=== PATIENT | male | born 1990 | race African-American/Black ===

== ENCOUNTER 2016-11-23 10:37 | Emergency (ER) | payer OTHER ==
[~2016-11-23] VITALS: Ht 170.2 cm; Wt 83.9 kg
[2016-11-23 10:50] VITALS: BP 152/75
--- NOTE | 2016-11-23 11:04 | PHYS DOC ---
Past Medical History Past Medical History: No Pertinent History Past Surgical History: No Surgical History Alcohol Use: None Drug Use: None Adult General Chief Complaint Chief Complaint: PAIN ON URINATION HPI HPI Patient is a 26 year old male presents to the emergency department with a history of dysuria for the last day. Patient denies penile drainage, denies fever, chills, nausea or vomiting. Patient states he is sexually active with one partner without protection. Review of Systems Review of Systems Constitutional: Denies fever or chills [] Eyes: Denies change in visual acuity, redness, or eye pain [] HENT: Denies nasal congestion or sore throat [] Respiratory: Denies cough or shortness of breath [] Cardiovascular: No additional information not addressed in HPI [] GI: Denies abdominal pain, nausea, vomiting, bloody stools or diarrhea [] : dysuria denies hematuria [] Musculoskeletal: Denies back pain or joint pain [] Integument: Denies rash or skin lesions [] Neurologic: Denies headache, focal weakness or sensory changes [] Endocrine: Denies polyuria or polydipsia [] Physical Exam Physical Exam Constitutional: Well developed, well nourished, no acute distress, non-toxic appearance. [] HENT: Normocephalic, atraumatic, bilateral external ears normal, oropharynx moist, no oral exudates, nose normal. [] Eyes: PERRLA, EOMI, conjunctiva normal, no discharge. [] Neck: Normal range of motion, no tenderness, supple, no stridor. [] Cardiovascular:Heart rate regular rhythm, no murmur [] Lungs & Thorax: Bilateral breath sounds clear to auscultation [] Skin: Warm, dry, no erythema, no rash. [] Back: No tenderness, no CVA tenderness. [] Extremities: No tenderness, no cyanosis, no clubbing, ROM intact, no edema. [] Neurologic: Alert and oriented X 3, normal motor function, normal sensory function, no focal deficits noted. [] Psychologic: Affect normal, judgement normal, mood normal. [] perineal exam with CARMEN Razo at bedside. Patient with no rash, no drainage noted. Current Patient Data Vital Signs Vital Signs Date Time Temp Pulse Resp B/P (MAP) Pulse Ox O2 Delivery O2 Flow Rate FiO2 11/23/16 10:50 98.0 72 18 97 Room Air 98.0 Lab Values Laboratory Tests Test 11/23/16 10:43 Urine Collection Type Unknown Urine Color Yellow Urine Clarity Clear Urine pH 6.0 Urine Specific [place] 1.020 Urine Protein Negative mg/dL (NEG-TRACE) Urine Glucose (UA) Negative mg/dL (NEG) Urine Ketones (Stick) Negative mg/dL (NEG) Urine Blood Negative (NEG) Urine Nitrite Negative (NEG) Urine Bilirubin Negative (NEG) Urine Urobilinogen Dipstick 0.2 mg/dL (0.2 mg/dL) Urine Leukocyte Esterase Negative (NEG) Urine RBC Occ /HPF (0-2) Urine WBC Occ /HPF (0-4) Urine Squamous Epithelial Cells Occ /LPF Urine Bacteria Few /HPF (0-FEW) Urine Mucus Marked /LPF EKG EKG [] Radiology/Procedures Radiology/Procedures [] Course & Med Decision Making Course & Med Decision Making Pertinent Labs and Imaging studies reviewed. (See chart for details) UA was negative for UTI. Patient will be treated for dysuria. Patient was instructed he will be notified if STD cultures are positive. Patient will be placed on cipro at discharge. Recommended plenty of fluids such as water and cranberry juice. Patient was recommended to avoid cranberry juice cocktail, carbonated beverages, caffeine, alcohol and citrus fruits. Patient will be discharged home in stable condition. All questions and concerns answered at patients bedside. Patient then states that he is concerned about STD and would like to be treated. Rocephin , zithromax and flagyl ordered. [] Dragon Disclaimer Dragon Disclaimer This electronic medical record was generated, in whole or in part, using a voice recognition dictation system. Departure Departure Impression: Primary Impression: Dysuria Disposition: 01 HOME, SELF-CARE Condition: STABLE Referrals: MARIBEL DE LA PAZ MD (PCP) Patient Instructions: Dysuria-Brief Additional Instructions: Urine was negative for urinary tract infection. You will be notified if your cultures are positive. Activity as tolerated Medication as prescribed Drink plenty of fluids such as: water and cranberry juice Avoid cranberry juice cocktail, carbonated beverages, caffeine, citrus fruits and alcohol as these are considered irritants to the bladder Followup with primary care provider in 7-10 days Return to emergency department as needed for signs and symptoms that become worse. Scripts Ciprofloxacin Hcl (CIPRO) 500 Mg Tablet 1 TAB PO BID, #14 TAB Prov: GHAZALA BEATTY APRN 11/23/16 GHAZALA BEATTY APRN Nov 23, 2016 11:04
[2016-11-23 11:18] LABS: BILIRUBIN,URINE NEGATIVE (NEG); GLUCOSE,URINE NEGATIVE (NEG); NITRITE,URINE NEGATIVE (NEG); PROTEIN,URINE NEGATIVE (NEG-TRACE); UROBILINOGEN,URINE 0.2 mg/dL (0.2 mg/dL)
[2016-11-23 11:24] LABS: BACTERIA,URINE FEW /HPF (0-FEW); SQUAMOUS EPITHELIAL CELL,UR OCC /LPF
[2016-11-23 11:25] LABS: RBC,URINE OCC /HPF (0-2); WBC,URINE OCC /HPF (0-4)
[2016-11-23] MEDS ORDERED: CIPR500T94 PO (11:39)
[2016-11-23] MEDS ORDERED: metroNIDAZOLE 500 MG TABLET PO ONE (11:45)
[2016-11-23] MEDS ORDERED: AZITHROMYCIN 250 MG TABLET. PO ONE (11:45)
[2016-11-23] MEDS ORDERED: cefTRIAXone IM 250 MG VIAL IM ONE (11:45)
== END 2016-11-23 12:24 | disposition home or self-care (01) ==
LOC: ER 10:37
DX: R30.0 Dysuria (principal)
CPT/HCPCS: 81001; 87491; 87591; 96372; 99284; J0696; Q0144

== ENCOUNTER 2017-09-15 12:09 | Emergency (ER) | payer SELFPAY, OTHER ==
[2017-09-15] MEDS: metroNIDAZOLE 500 MG TABLET PO (12:54)
[2017-09-15] MEDS: AZITHROMYCIN 250 MG TABLET. PO (12:55)
[2017-09-15] MEDS: cefTRIAXone IM 250 MG VIAL IM (12:56)
== END 2017-09-15 13:15 | disposition home or self-care (01) ==
LOC: ER 13:15
DX: Z20.2 Contact with and (suspected) exposure to infections with a predominantly sexual mode of transmission (principal); I10 Essential (primary) hypertension; R20.2 Paresthesia of skin; R35.0 Frequency of micturition
CPT/HCPCS: 96372; 99283; J0696; Q0144